=== PATIENT | male | born 1980 | race Caucasian/White ===

== ENCOUNTER 2020-07-21 16:59 | Inpatient (IN) | payer SELFPAY ==
[~2020-07-21] VITALS: Ht 167.6 cm; Wt 67.8 kg
[2020-07-21] MEDS ORDERED: SODIUM CHLORIDE 0.9% 1,000 ML IV ONE (17:45)
[2020-07-21] MEDS ORDERED: LORAZEPAM 2MG/ML CPJ IV ONE (17:45)
[2020-07-21] MEDS ORDERED: NITROGLYCERIN OINT 1GM/INCH UDPKT TD ONE (17:45)
[2020-07-21 19:17] LABS: BASOPHILS % 0.5 % (0.0-2.0); EOSINOPHILS % 0.1 % (0.0-5.0); HEMATOCRIT. 29.4 % (42.0-52.0); LYMPHOCYTES % 18.9 % (20.0-50.0); MEAN CORPUSCULAR HEMOGLOBIN 30.3 pg (28.0-32.0); MEAN CORPUSCULAR VOLUME 89.7 fL (80.0-94.0); MEAN PLATELET VOLUME 9.5 fl (7.4-10.4); MONOCYTES % 14.6 % (2.0-8.0); NEUTROPHILS % 65.9 % (40.0-76.0); RED BLOOD CELL COUNT 3.28 mill/uL (4.7-6.1); RED CELL DISTRIBUTION WIDTH 15.4 % (11.6-14.6)
[2020-07-21 19:44] LABS: CHLORIDE 109 mEq/L (98-107)
[2020-07-21 19:49] LABS: ETHANOL BLOOD 204 mg/dL
[2020-07-21] MEDS ORDERED: POTASSIUM CHLORIDE 20MEQ TABLET SR PO ONE (20:15)
[2020-07-21 21:01] LABS: *AMPHETAMINES SCREEN URINE PRESUMTIVE POSITIVE (NEGATIVE); *COCAINE SCREEN URINE NEGATIVE (NEGATIVE); METHADONE URINE SCREEN NEGATIVE (NEGATIVE); OPIATES URINE SCREEN NEGATIVE (NEGATIVE); PHENCYCLIDINE URINE SCREEN NEGATIVE (NEGATIVE)
[2020-07-21 21:02] LABS: *BARBITURATES SCREEN URINE NEGATIVE (NEGATIVE); *BENZODIAZEPINES SCREEN URINE NEGATIVE (NEGATIVE); CANNABINOID URINE SCREEN NEGATIVE (NEGATIVE)
[2020-07-21] MEDS ORDERED: MAGNESIUM/ALUMINUM HYDROXIDE/SIMETHICONE 30ML UDC PO PRN (22:00)
[2020-07-21] MEDS ORDERED: ONDANSETRON HCL 4MG/2ML INJ IV PRN (22:00)
[2020-07-21] MEDS ORDERED: LORAZEPAM 2MG/ML CPJ IV PRN (22:00)
[2020-07-21] MEDS ORDERED: CLONIDINE 0.1MG TABLET PO PRN (22:00)
[2020-07-21] MEDS: SODIUM CHLORIDE 0.9% INJ 3ML FLUSH IVF SCH (22:00)
[2020-07-21] MEDS ORDERED: IPRATROPIUM/ALBUTEROL 0.5-3(2.5)MG/3ML NEB HHN PRN (22:00)
[2020-07-21] MEDS ORDERED: DIPHENHYDRAMINE 50MG/ML VIAL IV PRN (22:00)
[2020-07-21] MEDS ORDERED: HYDRALAZINE 20MG/ML VIAL IV PRN (22:00)
[2020-07-21] MEDS ORDERED: GUAIFENESIN 200MG/10ML SUGAR FREE UDC PO PRN (22:00)
[2020-07-21] MEDS ORDERED: DOCUSATE SODIUM 100MG CAPSULE PO PRN (22:00)
[2020-07-21] MEDS ORDERED: SODIUM CHLORIDE 0.45% 1,000 ML IV SCH (22:00)
[2020-07-21 23:15] VITALS: BP 141/76
[2020-07-21 23:35] LABS: CREATINE KINASE 469 IU/L (39-308)
[2020-07-22] VITALS: BP 127/83
[2020-07-22 04:00] VITALS: BP 130/79
[2020-07-22] MEDS: SODIUM CHLORIDE 0.9% INJ 3ML FLUSH IVF SCH (05:16)
[2020-07-22 06:00] VITALS: BP 147/88
[2020-07-22] MEDS: ACETAMINOPHEN 325MG TABLET PO PRN ×2 (06:39→10:50)
[2020-07-22 07:04] LABS: CHLORIDE 102 mEq/L (98-107)
[2020-07-22 07:12] LABS: CREATINE KINASE 375 IU/L (39-308)
[2020-07-22 07:15] LABS: CREATINE KINASE MB FRACTION 1.4 ng/mL (0.5-3.6)
[2020-07-22 07:45] LABS: BASOPHILS % 0.7 % (0.0-2.0); EOSINOPHILS % 0.4 % (0.0-5.0); HEMATOCRIT. 31.5 % (42.0-52.0); HEMOGLOBIN. 10.5 g/dL (14.0-18.0); LYMPHOCYTES % 21.5 % (20.0-50.0); MEAN CORPUSCULAR HEMOGLOBIN 29.2 pg (28.0-32.0); MEAN CORPUSCULAR VOLUME 87.8 fL (80.0-94.0); MEAN PLATELET VOLUME 8.9 fl (7.4-10.4); MONOCYTES % 13.9 % (2.0-8.0); NEUTROPHILS % 63.5 % (40.0-76.0); RED BLOOD CELL COUNT 3.59 mill/uL (4.7-6.1); RED CELL DISTRIBUTION WIDTH 15.5 % (11.6-14.6)
[2020-07-22] MEDS ORDERED: POTASSIUM CHLORIDE 20MEQ TABLET SR PO SCH (08:00)
[2020-07-22 08:37] LABS: PLATELET 37 x1000/uL (130-400)
[2020-07-22] MEDS ORDERED: THIAMINE HCL 100MG TABLET PO SCH (09:00)
[2020-07-22] MEDS ORDERED: FOLIC ACID 1MG TABLET PO SCH (09:00)
[2020-07-22] MEDS ORDERED: MULTIVITAMINS,THER W-MINERALS TABLET PO SCH (09:00)
[2020-07-22 10:22] LABS: PLATELET 37 x1000/uL (130-400)
[2020-07-22] MEDS ORDERED: METOPROLOL TARTRATE 25MG TABLET PO SCH (10:30)
[2020-07-22] MEDS ORDERED: POTASSIUM CHLORIDE 20MEQ TABLET SR PO NR (12:00)
[2020-07-22] MEDS ORDERED: CHLORDIAZEPOXIDE 25MG CAPSULE PO SCH (14:00)
[2020-07-22 14:32] LABS: HEPATITIS B SURFACE ANTIGEN NEGATIVE
[2020-07-22 15:02] LABS: HEPATITIS A AB IGM NEGATIVE (NEGATIVE)
== END 2020-07-22 12:51 | disposition left against medical advice (07) | DRG 342 ==
LOC: ER 16:59 → 3WST 20:11 → ENRESERV 21:09 → 3WST 23:30
PROVIDERS: ADMIT Internal Medicine; ATTEND Internal Medicine
DX: M84.48XA Pathological fracture, other site, initial encounter for fracture (principal); D69.59 Other secondary thrombocytopenia; D64.9 Anemia, unspecified; D72.819 Decreased white blood cell count, unspecified; I10 Essential (primary) hypertension; F10.129 Alcohol abuse with intoxication, unspecified; R00.0 Tachycardia, unspecified; E87.6 Hypokalemia; F17.210 Nicotine dependence, cigarettes, uncomplicated; Y90.7 Blood alcohol level of 200-239 mg/100 ml; K76.9 Liver disease, unspecified; R16.2 Hepatomegaly with splenomegaly, not elsewhere classified; I25.2 Old myocardial infarction; Z71.41 Alcohol abuse counseling and surveillance of alcoholic; Z71.51 Drug abuse counseling and surveillance of drug abuser
CPT/HCPCS: 36415; 71045; 76700; 80053; 80305; 80320; 82550; 82553; 83735; 83880; 84484; 85025; 86705; 86709; 86803; 87340; 93005; 93970; 99285; J2060; J2405; J7030; G0480